=== PATIENT | male | born 1955 | race Hispanic/Latino ===

== ENCOUNTER → 2020-04-30 | Outpatient (CLI) | payer MEDICARE | END | disposition home or self-care (01) | LOC: RAH 12:43 | PROVIDERS: ATTEND Physical Medicine & Rehabilitation | DX: M48.05 Spinal stenosis, thoracolumbar region (principal); M54.16 Radiculopathy, lumbar region | CPT/HCPCS: 72110; 73522 ==

== ENCOUNTER → 2020-06-12 | Outpatient (CLI) | payer MEDICARE | END | disposition home or self-care (01) | LOC: RAH 12:37 | PROVIDERS: ATTEND Physical Medicine & Rehabilitation | DX: I73.9 Peripheral vascular disease, unspecified (principal) | CPT/HCPCS: 93925 ==

== ENCOUNTER 2020-12-22 06:45 | Day surgery (SDC) | payer MEDICARE ==
[2020-12-18 15:25] LABS: BASOPHILS % (AUTO) 0.7 % (0.0-5.0); EOSINOPHILS % (AUTO) 2.1 % (0.0-8.0); HEMATOCRIT 43.7 % (42-54); LYMPHOCYTES % (AUTO) 33.5 % (21.0-51.0); MEAN CORPUSCULAR HEMOGLOBIN 33.4 pg (27.0-33.0); MEAN CORPUSCULAR HGB CONC 34.1 g/dL (32.0-36.0); MONOCYTES % (AUTO) 6.1 % (3.0-13.0); NEUTROPHILS % (AUTO) 57.1 % (40.0-77.0); PLATELET COUNT (AUTO) 101 K/uL (130-400); RED BLOOD CELL COUNT(AUTO) 4.46 MIL/uL (4.50-6.20); RED CELL DISTRIBUTION WIDTH 13.2 % (11.0-15.5); WHITE BLOOD COUNT (AUTO) 5.7 K/uL (4.8-10.8)
[2020-12-18 15:27] LABS: APPEARANCE,URINE Clear (CLEAR); BILIRUBIN,URINE Small (NEGATIVE); COLOR,URINE Dark Yellow (YELLOW); GLUCOSE, URINE (UA) 250 mg/dL (NEGATIVE); KETONES,URINE Trace mg/dL (NEGATIVE); LEUKOCYTE ESTERASE ,URINE Negative (NEGATIVE); NITRATE,URINE Negative (NEGATIVE); OCCULT BLOOD,URINE Negative (NEGATIVE); PH,URINE 5.5 (5.0-8.0); PROTEIN,URINE Negative (NEGATIVE)
[2020-12-18 15:39] LABS: POTASSIUM 4.6 mmol/L (3.5-5.1)
[2020-12-18 15:42] LABS: INR 1.07 (0.85-1.15); PROTHROMBIN TIME 11.6 SEC (9.6-11.6)
[2020-12-18 15:43] LABS: PARTIAL THROMBOPLASTIN TIME 27.6 SEC (26.3-35.5)
[2020-12-18 16:11] LABS: BACTERIA,URINE Rare /HPF (None Seen); RBC,URINE 0-1 /HPF (0-1); SQUAMOUS EPITHELIAL CELL,UR Rare /HPF (0-2); WBC,URINE 0-1 /HPF (0-1)
[2020-12-19 16:50] VITALS: BP 115/67
[~2020-12-22] VITALS: Ht 157.5 cm; Wt 84.2 kg
[2020-12-22] VITALS (11 sets, daily range): BP systolic 104–176; BP diastolic 60–96
[~2020-12-22 06:45] MED LIST: AMLO-258 PO; ASPI-1197 PO; ATOR20TA PO; FAMO40TA7 PO; GABA300S PO; LEVO25CA4 PO; LOSA100T58 PO; METF-444 PO; METO-391 PO; PANT40TA54 PO
[2020-12-22] MEDS ORDERED: 0.9%NACL 1000ML 1,000 ML IV ONE (06:52)
[2020-12-22] MEDS ORDERED: IODIXANOL 320 MG/ML 100 ML VIAL ONE (07:31)
[2020-12-22] MEDS ORDERED: HEPARIN 10,000 UNIT/10ML (1,000 UNIT/ML) VIAL ONE (07:31)
[2020-12-22] MEDS ORDERED: LIDOCAINE HCL 400MG/20ML VIAL ONE (07:31)
[2020-12-22] MEDS ORDERED: NITROGLYCERIN 2 MG VIAL IV ONE (08:40)
[2020-12-22] MEDS ORDERED: NICARDIPINE 25MG INJ IV ONE (08:40)
[2020-12-22] MEDS ORDERED: FENTANYL CITRATE PF 50 MCG/1 ML 2ML VIAL ONE (10:17)
[2020-12-22] MEDS ORDERED: MIDAZOLAM HCL 1 MG/ML 2ML VIAL ONE (10:17)
[2020-12-22] MEDS ORDERED: GLUCAGON 1MG KIT 1 MG ML IM PRN (12:00)
[2020-12-22] MEDS ORDERED: DEXTROSE 50%-WATER 50 ML DISP.SYRIN IV PRN (12:00)
[2020-12-22] MEDS ORDERED: 0.9%NACL 1000ML 1,000 ML IV SCH (12:00)
[2020-12-22] MEDS ORDERED: INSULIN HUMULIN R 100 UNIT/ML 3ML SQ SCH (16:30)
== END 2020-12-22 16:15 | disposition home or self-care (01) ==
LOC: DAH 06:45
PROVIDERS: ATTEND Internal Medicine Cardiovascular Disease
DX: I74.19 Embolism and thrombosis of other parts of aorta (principal); Z20.822 Contact with and (suspected) exposure to COVID-19; I74.09 Other arterial embolism and thrombosis of abdominal aorta; I70.92 Chronic total occlusion of artery of the extremities; I70.213 Atherosclerosis of native arteries of extremities with intermittent claudication, bilateral legs; I11.0 Hypertensive heart disease with heart failure; I50.32 Chronic diastolic (congestive) heart failure; E11.40 Type 2 diabetes mellitus with diabetic neuropathy, unspecified; E11.51 Type 2 diabetes mellitus with diabetic peripheral angiopathy without gangrene; E78.5 Hyperlipidemia, unspecified; K21.9 Gastro-esophageal reflux disease without esophagitis; E66.9 Obesity, unspecified; I87.2 Venous insufficiency (chronic) (peripheral); Z82.49 Family history of ischemic heart disease and other diseases of the circulatory system; Z83.3 Family history of diabetes mellitus; Z82.3 Family history of stroke; Z80.9 Family history of malignant neoplasm, unspecified; Z79.01 Long term (current) use of anticoagulants; Z79.899 Other long term (current) drug therapy; Z79.84 Long term (current) use of oral hypoglycemic drugs; Z79.82 Long term (current) use of aspirin; Z79.890 Hormone replacement therapy; Z68.32 Body mass index [BMI] 32.0-32.9, adult
CPT/HCPCS: 36200; 36415; 71045; 75630; 80048; 81001; 82948 ×3; 85025; 85610; 85730; 93005; A4215; A4216; A4221; A4222; A4223 ×3; A4606; A4663; C1769 ×3; C1894 ×2; J1644 ×2; J2250; J3010; J3490 ×3; J7030; Q9967; 99156; 99157